=== PATIENT | female | born 1960 | race Caucasian/White ===

== ENCOUNTER 2021-03-01 12:23 | Emergency (ER) | payer BC ==
[~2021-03-01] VITALS: Ht 172.7 cm; Wt 96.6 kg
[2021-03-01] MEDS ORDERED: KETOROLAC TROMETHAMINE 60 MG/2 ML VIAL IM ONE (12:45)
[2021-03-01] MEDS ORDERED: ASPIRIN EC81 MG PO (14:24)
[2021-03-01] MEDS ORDERED: PANTOPRAZOLE SO20 MG PO (14:24)
[2021-03-01] MEDS ORDERED: MAGNESIUM OXID400 MG PO (14:24)
[2021-03-01] MEDS ORDERED: LEVOTHYROXINE112 MC1 (14:24)
[2021-03-01] MEDS ORDERED: AMLODIPINE BESY10 MG PO (14:24)
[2021-03-01] MEDS ORDERED: OMEGA 3 1,0001 EACH PO (14:24)
[2021-03-01] MEDS ORDERED: VITAMIN D3 COM1 EACH (14:24)
[2021-03-01] MEDS ORDERED: CALCIUM CARBON500 MG PO (14:24)
[2021-03-01] MEDS ORDERED: CRESTOR10 MG PO (14:24)
[2021-03-01] MEDS ORDERED: METFORMIN HCL500 MG PO (14:24)
[2021-03-01] MEDS ORDERED: MYCOPHENOLIC ACID (14:24)
[2021-03-01] MEDS ORDERED: LOSARTAN POTASS50 MG PO (14:24)
[2021-03-01] MEDS ORDERED: TACROLIMUS1 MG PO (14:24)
== END 2021-03-01 13:30 | disposition home or self-care (01) ==
LOC: FSED 13:00
DX: S83.92XA Sprain of unspecified site of left knee, initial encounter (principal); S93.402A Sprain of unspecified ligament of left ankle, initial encounter; X50.1XXA Overexertion from prolonged static or awkward postures, initial encounter; Y93.01 Activity, walking, marching and hiking
CPT/HCPCS: 73590; 96372; 99284; J1885

== ENCOUNTER 2021-03-07 13:17 | Emergency (ER) | payer OTHER, BC ==
[~2021-03-07] VITALS: Ht 172.7 cm; Wt 96.6 kg
[~2021-03-07 13:17] MED LIST: AMLODIPINE BESY10 MG PO; ASPIRIN EC81 MG PO; CALCIUM CARBON500 MG PO; CRESTOR10 MG PO; LEVOTHYROXINE112 MC1; LOSARTAN POTASS50 MG PO; MAGNESIUM OXID400 MG PO; METFORMIN HCL500 MG PO; MYCOPHENOLIC ACID; OMEGA 3 1,0001 EACH PO; PANTOPRAZOLE SO20 MG PO; TACROLIMUS1 MG PO; VITAMIN D3 COM1 EACH
[2021-03-07] MEDS ORDERED: TRAMADOL HCL 50 MG TAB PO NR (17:45)
[2021-03-07] MEDS ORDERED: TRAMADOL HCL 50 MG TAB ONE (17:57)
[2021-03-07] MEDS ORDERED: ULTRAM 50MG50 MG PO (19:23)
[2021-03-07 19:42] VITALS: BP 121/86
== END 2021-03-07 19:42 | disposition home or self-care (01) ==
LOC: FSED 15:06
DX: S82.852A Displaced trimalleolar fracture of left lower leg, initial encounter for closed fracture (principal); W01.0XXA Fall on same level from slipping, tripping and stumbling without subsequent striking against object, initial encounter; I10 Essential (primary) hypertension; Z85.72 Personal history of non-Hodgkin lymphomas; Z94.81 Bone marrow transplant status; Z94.1 Heart transplant status; E11.9 Type 2 diabetes mellitus without complications; Z79.84 Long term (current) use of oral hypoglycemic drugs; E78.5 Hyperlipidemia, unspecified
CPT/HCPCS: 99284

== ENCOUNTER 2021-03-10 21:45 | Emergency (ER) | payer BC ==
[~2021-03-10] VITALS: Ht 172.7 cm; Wt 95.3 kg
[~2021-03-10 21:45] MED LIST changes: +ULTRAM 50MG50 MG PO
[2021-03-10 22:50] VITALS: BP 131/85
== END 2021-03-10 23:03 | disposition home or self-care (01) ==
LOC: ER 22:03
DX: Z47.89 Encounter for other orthopedic aftercare (principal); I10 Essential (primary) hypertension; E11.9 Type 2 diabetes mellitus without complications; E03.9 Hypothyroidism, unspecified; K21.9 Gastro-esophageal reflux disease without esophagitis; Z85.72 Personal history of non-Hodgkin lymphomas
CPT/HCPCS: 99283

== ENCOUNTER 2021-03-22 | Emergency (ER) | payer BC ==
[~2021-03-22] VITALS: Ht 172.7 cm; Wt 95.3 kg
== END 2021-03-22 01:30 | disposition home or self-care (01) ==
LOC: FSED 00:41
DX: F32.9 Major depressive disorder, single episode, unspecified (principal)
CPT/HCPCS: 99283